=== PATIENT | male | born 1980 | race Caucasian/White ===

== ENCOUNTER 2018-01-16 12:56 | Day surgery (SDC) | payer BC ==
[2018-01-16] MEDS ORDERED: LR 1,000 ML IV ×2 (14:00→18:45)
[2018-01-16] MEDS ORDERED: MIDAZOLAM INJ 2 MG/2 ML VIAL (J2250) As Ordered (15:11)
[2018-01-16] MEDS ORDERED: fentaNYL 100 MCG/2 ML INJECTION (J3010) As Ordered ×3 (15:11→19:21)
[2018-01-16] MEDS ORDERED: ONDANSETRON 4MG/2ML VIAL (J2405) As Ordered ×2 (15:11→18:41)
[2018-01-16] MEDS ORDERED: PROPOFOL 200 MG/20 ML VIAL As Ordered ×2 (15:11→17:43)
[2018-01-16] MEDS ORDERED: LIDOCAINE 2% INJ 100 MG/5 ML SDV (FOR ANES.) As Ordered (15:11)
[2018-01-16] MEDS ORDERED: dexameTHASONE 4 MG/ML 1ML VIAL (J1100) As Ordered (15:18)
[2018-01-16] MEDS ORDERED: HYDROmorphone HCL 2 MG/ML 1ML VIAL (J1170) As Ordered (17:17)
[2018-01-16] MEDS: ceFAZolin 1GM INJ (J0690 PER 500MG) As Ordered ×2 (17:31→17:32)
[2018-01-16] MEDS ORDERED: PERCOCET 5MG/325MG TAB As Ordered (18:41)
[2018-01-16] MEDS ORDERED: KETOROLAC 30 MG/ML VIAL (J1885) As Ordered (18:41)
[2018-01-16] MEDS ORDERED: NORCO, ANEXSIA 5/325MG TABLET (HYDROcodone/ACETAMINOPHEN) PO ×2 (18:45)
[2018-01-16] MEDS: KETOROLAC 30 MG/ML VIAL (J1885) IV (18:45)
[2018-01-16] MEDS: ONDANSETRON 4MG/2ML VIAL (J2405) IV (18:45)
[2018-01-16] MEDS: PERCOCET 5MG/325MG TAB PO ×2 (18:45→19:15)
[2018-01-16] MEDS: fentaNYL 100 MCG/2 ML INJECTION (J3010) IV ×6 (18:45→19:40)
[2018-01-16] MEDS ORDERED: METOCLOPRAMIDE INJ 10MG/2ML VIAL (J2765) IV (18:45)
[2018-01-16] MEDS ORDERED: MORPHINE 4 MG/ML 1ML VIAL (J2270) IV (18:45)
== END 2018-01-16 22:20 | disposition home or self-care (01) ==
LOC: M SDC 22:20
DX: S46.211A Strain of muscle, fascia and tendon of other parts of biceps, right arm, initial encounter (principal); W21.02XA Struck by soccer ball, initial encounter; Y93.66 Activity, soccer; Y92.89 Other specified places as the place of occurrence of the external cause; Y99.8 Other external cause status; F41.9 Anxiety disorder, unspecified; F32.9 Major depressive disorder, single episode, unspecified; F90.9 Attention-deficit hyperactivity disorder, unspecified type; Z79.899 Other long term (current) drug therapy; Z87.81 Personal history of (healed) traumatic fracture
CPT/HCPCS: 24341

== ENCOUNTER → 2021-08-15 | Outpatient (REF) | payer BC ==
[~2021-08-15] MED LIST: CONC54TA4 PO; CYCL-707 PO; CYMB60CA3 PO; GABA-282 PO; IBUP-1022 PO; NORC1TAB7 PO; OXYC-517 PO; PRED-351 PO; PRED20TA PO; Pantoprazole Sodium PO; VALI5TAB PO
== END ==
LOC: M LAB REF 13:47
PROVIDERS: ATTEND Family Medicine
DX: J06.9 Acute upper respiratory infection, unspecified (principal); Z20.822 Contact with and (suspected) exposure to COVID-19

== ENCOUNTER → 2023-07-30 | Outpatient (CLI) | payer BC ==
[~2023-07-30] MED LIST changes: -CYMB60CA3 PO; +CYMB60CA4 PO
== END ==
LOC: M SLEEP HO 11:28
PROVIDERS: ATTEND Physician Assistant
DX: R06.83 Snoring (principal)